=== PATIENT | female | born 1930 | race Caucasian/White ===

== ENCOUNTER → 2016-02-24 | Outpatient (CLI) | payer MEDICARE ==
--- NOTE | 2016-02-24 11:08 | RAD ---
EXAM DESCRIPTION: XR HIP 2 OR MORE VIEWSXR HIP 2 OR MORE VIEWS CLINICAL HISTORY: 85 y/o ,F, PAIN IN LEFT HIP COMPARISON: October 2015. IMPRESSION: Only on the frog-leg view is a possible avulsion injury of the posterior margin of the greater trochanter. The femoral neck is unremarkable. No joint space loss of the left hip. This can be confirmed on a CT if desired. Electronically signed by: Jamin Sesay MD 02/24/2016 11:06
--- NOTE | 2016-02-24 11:09 | RAD ---
EXAM DESCRIPTION: Pelvis series. CLINICAL HISTORY: Pelvic pain. COMPARISON: None. TECHNIQUE: One view was submitted for evaluation. FINDINGS: No fracture, dislocation, or radiopaque foreign body is seen. Pelvic ring appears intact. Soft tissues are unremarkable. IMPRESSION: No gross abnormality on today's single pelvic Rob Electronically signed by: Jamin Sesay MD 02/24/2016 11:07
== END ==
LOC: RAD 08:20
PROVIDERS: ATTEND Orthopaedic Surgery
DX: M25.552 Pain in left hip (principal)

== ENCOUNTER → 2016-03-22 | Outpatient (CLI) | payer MEDICARE ==
--- NOTE | 2016-03-22 15:48 | MAM ---
EXAM DESCRIPTION: MAMMO BREAST SCREENING BILATERAL CAD, images were reviewed with CAD technology, R2 computer-aided detection. CLINICAL HISTORY: Well Woman. Personal history of breast cancer status post left mastectomy COMPARISON: 2013. FINDINGS: Routine views are obtained. Scattered glandular pattern with the increased mammographic density period no dominant mass, architectural distortion or clustered microcalcification.. IMPRESSION: Benign exam. BIRAD CATEGORY: 2 BENIGN RECOMMENDATIONS: FOLLOW-UP: Routine screening mammogram in one year. According to the [employer], yearly mammograms are recommended starting at age 40 and continuing as long as a woman is in good health. Any breast change noted on a breast self-exam should be reported promptly to the patient's healthcare provider. Breast MRI is recommended for women with an approximately 20-25% or greater lifetime risk of breast cancer, including women with a strong family history of breast or ovarian cancer and women who have been treated for Hodgkin's disease. Electronically signed by: Tracy Pastor 03/22/2016 15:47
== END | disposition home or self-care (01) ==
LOC: MAMMO 10:19
PROVIDERS: ATTEND Family Medicine
DX: Z12.31 Encounter for screening mammogram for malignant neoplasm of breast (principal); M10.9 Gout, unspecified

== ENCOUNTER → 2016-03-30 | Outpatient (CLI) | payer MEDICARE ==
--- NOTE | 2016-03-31 08:17 | CT ---
EXAM DESCRIPTION: CT ABDOMEN PELVIS WITHOUT THEN WITH IV CONTRAST CLINICAL HISTORY: ABDOMINAL PAIN COMPARISON: October 26, 2015 TECHNIQUE: Pre and post contrast CT images of the abdomen and pelvis are obtained. CT scan done according to ALARA (As Low As Reasonably Achievable). FINDINGS: The visualized lung bases show mild emphysematous changes without acute findings. Left mastectomy and breast implant changes are noted. The liver, spleen, adrenal glands, and gallbladder are unremarkable. Mild atherosclerotic disease is seen. Somewhat linear calcification in the head to uncinate process of the pancreas is stable. No enlargement of the main pancreatic duct is seen. The less than 1 cm cyst in the body to tail of the pancreas is stable from previous. No nephrolithiasis or ureteral obstruction. 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 Stable less than 1 cm right greater than left renal cortical cysts. Urinary bladder is somewhat contracted and unremarkable. There is surgical absence of the uterus. The ovaries are not identified. The appendix is not seen. No secondary signs of acute appendicitis. Stomach is contracted and unremarkable. The colon is unremarkable. No significant diverticular disease. Osseous structures show no aggressive bony lesions. 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 IMPRESSION: No acute findings on CT of the abdomen and pelvis. Stable less than 1 cm cyst of the body to tail of the pancreas is noted unchanged from previous. Stable bilateral renal cortical cysts. Electronically signed by: Mike Mckeon MD 03/31/2016 08:16
== END | disposition home or self-care (01) ==
LOC: CT 08:26
PROVIDERS: ATTEND Family Medicine
DX: R10.9 Unspecified abdominal pain (principal)

== ENCOUNTER → 2016-06-06 | Outpatient (CLI) | payer MEDICARE ==
--- NOTE | 2016-06-07 08:11 | MRI ---
EXAM DESCRIPTION: Lumbar Spine w/o Contrast CLINICAL HISTORY: LUMBAR RADICULOPATHY. Low back pain with right hip and leg pain. COMPARISON: None Available. TECHNIQUE: MRI of the lumbar spine is performed according to our usual protocol with axial and sagittal multi sequence imaging. FINDINGS: The designated L5-S1 disc space is on axial T1 image 4. Transitional lumbosacral anatomy is present. For the purposes of this report, the L5 vertebral body is considered transitional and partially sacralized. There is a millimeter anterolisthesis of L4 on L5 secondary to severe facet hypertrophy. Vertebral body stature is maintained. There is no acute fracture or destructive osseous lesion. Modic type II endplate changes at L4-L5. Scattered benign hemangiomas. The conus medullaris terminates normally. T12-L1: Disc desiccation with mild disc narrowing. 2 mm posterior disc bulge with no spinal canal or neural foraminal stenosis. L1-2: Disc desiccation. Otherwise no significant findings. L2-3: Disc desiccation with mild disc narrowing. Mild facet hypertrophy. 2 mm posterior disc bulge with no spinal canal or neural foraminal stenosis. L3-4: Disc desiccation with mild disc narrowing. Moderate facet hypertrophy with ligamentum flavum thickening. 2 mm posterior disc bulge with no spinal canal or neural foraminal stenosis. L4-5: Severe disc desiccation and severe disc narrowing. There is remodeling of the inferior L4 endplate. Severe bilateral facet hypertrophy with ligamentum flavum thickening. Anterolisthesis with uncovering and posterior bulging of the disc up to 10 mm. Multifactorial severe spinal canal stenosis with residual AP diameter of the thecal sac measuring 6 mm. Severe left greater than right neural foraminal stenosis. Material abuts both exiting L4 nerve roots. L5-S1: Mild disc desiccation. Transitional anatomy. Mild facet hypertrophy. No spinal canal or neural foraminal stenosis. IMPRESSION: 1. Transitional lumbosacral anatomy as described above. For the purposes of this report, the designated L5 vertebral body is considered transitional and partially sacralized. The designated L5-S1 disc space is on axial T1 image 4. 2. Multilevel disc degeneration and facet degenerative changes. The findings are most pronounced at L4-L5 where there is anterolisthesis secondary to severe facet hypertrophy. There is severe spinal canal stenosis and severe left greater than right neural foraminal stenosis at this level. 3. Other levels as detailed above. Electronically signed by: Richard Lima MD 06/07/2016 8:10 AM CDT
== END | disposition home or self-care (01) ==
LOC: MRI 10:25
PROVIDERS: ATTEND Orthopaedic Surgery
DX: M54.16 Radiculopathy, lumbar region (principal)

== ENCOUNTER → 2016-07-10 | Outpatient (CLI) | payer MEDICARE | END | disposition home or self-care (01) | LOC: YCFC.O 10:36 | PROVIDERS: ATTEND Anesthesiology Pain Medicine | DX: Z79.891 Long term (current) use of opiate analgesic (principal) ==

== ENCOUNTER 2016-07-31 10:40 | Day surgery (SDC) | payer MEDICARE ==
[2016-07-31] MEDS ORDERED: SODIUM CHLORIDE 0.9% 10 ML VIAL ONE (12:29)
[2016-07-31] MEDS ORDERED: methylPREDNISolone ACETATE 80 MG/ML VIAL ONE (12:29)
[2016-07-31] MEDS: LIDOCAINE 1% MPF 5 ML VIAL ONE ×2 (13:09→13:12)
[2016-07-31 13:31] VITALS: BP 189/71; TEMP 97.7; O2SAT 97
== END 2016-07-31 13:30 | disposition home or self-care (01) ==
LOC: AMB 10:40
PROVIDERS: ATTEND Anesthesiology Pain Medicine
DX: M51.16 Intervertebral disc disorders with radiculopathy, lumbar region (principal); M46.96 Unspecified inflammatory spondylopathy, lumbar region; M70.60 Trochanteric bursitis, unspecified hip; Z88.0 Allergy status to penicillin; Z88.8 Allergy status to other drugs, medicaments and biological substances; Z79.82 Long term (current) use of aspirin; Z79.899 Other long term (current) drug therapy
CPT/HCPCS: 62323; J1030

== ENCOUNTER → 2016-08-09 | Outpatient (CLI) | payer MEDICARE | END | disposition home or self-care (01) | LOC: GMAL 10:04 | PROVIDERS: ATTEND Family Medicine | DX: E55.9 Vitamin D deficiency, unspecified (principal); M10.9 Gout, unspecified; D51.3 Other dietary vitamin B12 deficiency anemia ==

== ENCOUNTER → 2016-08-15 | Outpatient (CLI) | payer MEDICARE | LOC: GMAL 16:52 | PROVIDERS: ATTEND Family Medicine | DX: L65.9 Nonscarring hair loss, unspecified (principal); D53.9 Nutritional anemia, unspecified ==

== ENCOUNTER → 2017-03-20 | Outpatient (CLI) | payer MEDICARE | LOC: GMAL 11:30 | PROVIDERS: ATTEND Family Medicine | DX: D53.9 Nutritional anemia, unspecified (principal) ==

== ENCOUNTER → 2017-03-27 | Outpatient (CLI) | payer MEDICARE ==
--- NOTE | 2017-03-28 09:42 | MAM ---
EXAM DESCRIPTION: 3D Screening RIGHT : Digital Mammography. CLINICAL HISTORY: 86 years Female SCREENING . Right breast cancer with mastectomy March 2005. Remote family history of breast cancer. Postmenopausal. HRT 5 or more years ago. Right breast biopsy. COMPARISON: 2-D digital screening right breast study 03/22/2016 and 02/24/2015.. Report from prior examination also reviewed. TECHNIQUE: Right breast CC and MLO projection full-field images, 3-D tomosynthesis digital mammographic technique. Also right breast synthesized CC/ MLO full-field images. CAD not utilized. FINDINGS: Right breast parenchymal density pattern is: Heterogeneously dense breast tissue, which may obscure small masses. No skin thickening or nipple retraction biopsy site marker middle third central right breast. Stable minimal architectural distortion around the marker. Scattered microcalcifications. Stable retroareolar nodular density. No new focal, stellate mass or density, focal asymmetry , and no suspicious microcalcifications right breast. Stable mammograms compared to prior study, taking into account differences in mammographic technique IMPRESSION: BI-RADS CATEGORY: 2 - BENIGN FINDINGS. FOLLOW UP: Routine digital right breast screening, one year interval from March 2017. Written communication explaining the IMPRESSION and follow-up, will be mailed to the patient and referring health care provider. According to the [employer], yearly mammograms are recommended starting at age 40 and continuing as long as a woman is in good health. Any breast change noted on a breast self-exam should be reported promptly to the patient's healthcare provider. Breast MRI is recommended for women with an approximately 20-25% or greater lifetime risk of breast cancer, including women with a strong family history of breast or ovarian cancer and women who have been treated for Hodgkin's disease. A negative mammographic report should not delay tissue diagnosis in patients with significant clinical history or physical findings. Extremely dense breast tissue limits the sensitivity of digital mammography. Electronically signed by: Ovidio Pickens MD 03/28/2017 9:40 AM UTILITY TECH
== END ==
LOC: MAMMO 09:30
PROVIDERS: ATTEND Family Medicine
DX: Z12.31 Encounter for screening mammogram for malignant neoplasm of breast (principal)

== ENCOUNTER 2017-07-14 00:25 | Emergency (ER) | payer MEDICARE ==
[2017-07-14] MEDS ORDERED: MORPHINE SULFATE INJ 10 MG/ML VIAL IV ONE (00:39)
[2017-07-14] MEDS ORDERED: ONDANSETRON INJ 4 MG/2 ML VIAL IV ONE (00:39)
[2017-07-14] MEDS ORDERED: CYCLOBENZAPRINE HCL 10 MG TAB PO ONE (00:40)
--- NOTE | 2017-07-14 00:43 | ED.PDOC ---
History of Present Illness - General Chief Complaint: Back Pain or Injury Stated Complaint: back spasms Time Seen by Provider: 07/14/17 00:38 Source: patient Exam Limitations: no limitations - History of Present Illness Timing/Duration: 4-6 hours Quality/Severity: moderate Back Pain Location: other - right flank Improving Factors: nothing Worsening Factors: nothing Associated Symptoms: muscle spasms Allergies/Adverse Reactions: Allergies Codeine Allergy (Verified 01/28/14 15:05) Hydromorphone [From Dilaudid] Allergy (Verified 01/28/14 15:05) Naproxen [From Naprosyn] Allergy (Verified 01/28/14 15:05) Penicillins Allergy (Verified 01/28/14 15:05) Home Medications: Ambulatory Orders Aspirin 01/28/14 Calcium 01/28/14 Digoxin 01/28/14 Furosemide 01/28/14 Klor-Con 01/28/14 Lisinopril 01/28/14 Metoprolol Tartrate 01/28/14 Ondansetron Odt [Zofran ODT] 8 mg PO Q6HR PRN #20 tab 01/28/14 Uloric 01/28/14 Vitamin B-12 01/28/14 Cyclobenzaprine HCl [Flexeril] 10 mg PO TID PRN #20 tab 07/14/17 Review of Systems - Review of Systems Constitutional: States: no symptoms reported EENTM: States: no symptoms reported Respiratory: States: no symptoms reported Cardiology: States: no symptoms reported Gastrointestinal/Abdominal: States: no symptoms reported Genitourinary: States: no symptoms reported Musculoskeletal: States: back pain Skin: States: no symptoms reported Neurological: States: no symptoms reported Endocrine: States: no symptoms reported Past Medical History (General) - Patient Medical History Hx Cardiac Disorders: Yes - Atrial Fib Hx Congestive Heart Failure: No Hx Hypertension: Yes Hx Diabetes: No Hx Cancer: Yes - Breast CA,Lung CA Hx MRSA: No - Vaccination History Hx Influenza Vaccination: Yes Hx Pneumococcal Vaccination: Yes - 2-3 years agp - Social History Hx Tobacco Use: Yes Family Medical History - Family History Mother Family History: Unknown Living Status: Father Hx Cardiac Disease: Yes - aortic aneurysm Physical Exam - Physical Exam General Appearance: Alert Eyes, Ears, Nose, Throat Exam: PERRL/EOMI, normal ENT inspection Neck Exam: non-tender, full range of motion, normal alignment Cardiovascular/Respiratory: regular rate, rhythm, no M/R/G Peripheral Pulses: radial,right: 2+, dorsalis pedis,right: 2+, dorsalis pedis, left: 2+ Gastrointestinal/Abdominal: non tender, soft Back Exam: CVA tenderness (R) Extremity Exam: no evidence of injury, normal range of motion, non-tender, no pedal edema 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 as tested, no motor/sensory deficits, alert, normal mood/affect, oriented x 3 Skin Exam: normal color, warm/dry Progress - Progress Progress: 07/14/17 02:03 Laboratory Results WBC 7.6 K/mm3 (4.8-10.8) 07/14/17 00:39 RBC 4.70 M/mm3 (4.20-5.40) 07/14/17 00:39 Hgb 13.9 gm/dL (12.0-16.0) 07/14/17 00:39 Hct 41.4 % (36.0-47.0) 07/14/17 00:39 MCV 88.0 fl (81.0-99.0) 07/14/17 00:39 MCH 29.5 pg (27.0-31.0) 07/14/17 00:39 MCHC 33.6 g/dL (33.0-37.0) 07/14/17 00:39 RDW 13.5 % (11.5-14.5) 07/14/17 00:39 Plt Count 150 K/mm3 (130-400) 07/14/17 00:39 MPV 9.3 fl (7.40-10.4) 07/14/17 00:39 Absolute Neuts (auto) 4.90 K/uL (1.8-6.8) 07/14/17 00:39 Absolute Lymphs (auto) 1.70 K/uL (1.0-3.4) 07/14/17 00:39 Absolute Monos (auto) 0.60 K/uL (0.2-0.8) 07/14/17 00:39 Absolute Eos (auto) 0.50 K/uL (0.0-0.4) H 07/14/17 00:39 Absolute Basos (auto) 0.10 K/uL (0.0-0.1) 18 00:39 Neutrophils % 63.5 % (42.0-78.0) 07/14/17 00:39 Lymphocytes % 22.4 % (20.0-50.0) 07/14/17 00:39 Monocytes % 7.3 % (2.0-9.0) 07/14/17 00:39 Eosinophils % 6.0 % (1.0-5.0) H 07/14/17 00:39 Basophils % 0.8 % (0.0-2.0) 07/14/17 00:39 Sodium 136 mmol/L (135-145) 07/14/17 00:39 Potassium 4.0 mmol/L (3.6-5.0) 07/14/17 00:39 Chloride 102 mmol/L (101-111) 07/14/17 00:39 Carbon Dioxide 25 mmol/L (21-31) 07/14/17 00:39 Anion Gap 13.0 (12-18) 07/14/17 00:39 BUN 23 mg/dL (7-18) H 07/14/17 00:39 Creatinine 0.93 mg/dL (0.6-1.3) 07/14/17 00:39 BUN/Creatinine Ratio 24.7 (10-20) H 07/14/17 00:39 Random Glucose 103 mg/dL (70-105) 07/14/17 00:39 Serum Osmolality 275.9 mOsm/L (275-295) 07/14/17 00:39 Calcium 9.3 mg/dL (8.4-10.2) 07/14/17 00:39 Total Bilirubin 0.5 mg/dL (0.2-1.0) 07/14/17 00:39 AST 21 IU/L (10-42) 07/14/17 00:39 ALT 16 IU/L (10-60) 07/14/17 00:39 Alkaline Phosphatase 43 IU/L (42-121) 07/14/17 00:39 Serum Total Protein 7.3 gm/dL (6.4-8.2) 18 00:39 Albumin 4.0 g/dl (3.2-5.5) 07/14/17 00:39 Globulin 3.3 gm/dL (2.3-3.5) 07/14/17 00:39 Albumin/Globulin Ratio 1.2 (1.1-1.9) 07/14/17 00:39 Lipase 19 U/L (22-51) L 07/14/17 00:40 Urine Color Yellow (Yellow) 07/14/17 01:33 Urine Appearance Clear (Clear) 07/14/17 01:33 Urine pH 5.5 (4.5-7.8) 07/14/17 01:33 Ur Specific [place] 1.020 (1.005-1.030) 07/14/17 01:33 Urine Protein Negative mg/dL 07/14/17 01:33 Urine Glucose (UA) Negative mg/dL (Negative) 07/14/17 01:33 Urine Ketones Negative mg/dL (NEGATIVE) 07/14/17 01:33 Urine Blood Negative (Negative) 07/14/17 01:33 Urine Nitrite Negative 07/14/17 01:33 Urine Bilirubin Negative (NEGATIVE) 07/14/17 01:33 Urine Urobilinogen 0.2 mg/dL (0.2-1.0) 07/14/17 01:33 Ur Leukocyte Esterase Negative (Negative) 07/14/17 01:33 Urine RBC 1-3 /hpf 07/14/17 01:33 Urine WBC 0-1 /hpf 07/14/17 01:33 Ur Epithelial Cells 1-3 /hpf 07/14/17 01:33 Urine Bacteria 0 07/14/17 01:33 pt feeling much improved, no longer having symptoms, discussed lab results and the need for close f/u, will returns if acute change or worsening, will increase h2o intake and will add muscle relaxant for short term therapy. Departure - Departure Clinical Impression: Muscle spasm, Flank pain Time of Disposition: 02:05 Disposition: Discharge to Home or Self Care Condition: Excellent Departure Forms: ED Discharge - Pt. Copy, Patient Portal Self Enrollment Instructions: DI for Back Spasm Diet: resume usual diet Activity: increase activity as tolerated Referrals: Alo Jerez III, MD [Primary Care Provider] - 1-2 Weeks Prescriptions: Cyclobenzaprine HCl [Flexeril] 10 mg PO TID PRN #20 tab PRN Reason: Pain Home Medications: Ambulatory Orders Aspirin 01/28/14 Calcium 01/28/14 Digoxin 01/28/14 Furosemide 01/28/14 Klor-Con 01/28/14 Lisinopril 01/28/14 Metoprolol Tartrate 01/28/14 Ondansetron Odt [Zofran ODT] 8 mg PO Q6HR PRN #20 tab 01/28/14 Uloric 01/28/14 Vitamin B-12 01/28/14 Cyclobenzaprine HCl [Flexeril] 10 mg PO TID PRN #20 tab 07/14/17
[2017-07-14 01:20] VITALS: O2SAT 96
[2017-07-14 02:14] VITALS: BP 144/52; TEMP 96.8
== END 2017-07-14 02:52 | disposition home or self-care (01) ==
LOC: ER 00:25
DX: M62.830 Muscle spasm of back (principal); R10.9 Unspecified abdominal pain; I48.91 Unspecified atrial fibrillation; I10 Essential (primary) hypertension; Z85.3 Personal history of malignant neoplasm of breast; Z85.118 Personal history of other malignant neoplasm of bronchus and lung; Z87.891 Personal history of nicotine dependence
CPT/HCPCS: 36415; 80053; 81001; 83690; 85025; J2270; J2405

== ENCOUNTER → 2017-08-14 | Outpatient (CLI) | payer MEDICARE | LOC: GMAL 15:04 | PROVIDERS: ATTEND Family Medicine | DX: D51.3 Other dietary vitamin B12 deficiency anemia (principal); D53.9 Nutritional anemia, unspecified; E55.9 Vitamin D deficiency, unspecified; R53.82 Chronic fatigue, unspecified ==

== ENCOUNTER → 2017-11-27 | Outpatient (CLI) | payer MEDICARE | LOC: GMAL 14:56 | PROVIDERS: ATTEND Family Medicine | DX: D53.9 Nutritional anemia, unspecified (principal); M10.9 Gout, unspecified; I10 Essential (primary) hypertension ==

== ENCOUNTER → 2018-04-02 | Outpatient (CLI) | payer MEDICARE ==
--- NOTE | 2018-04-04 20:28 | MAM ---
EXAM DESCRIPTION: 3D Screening BILATERAL : Digital Mammography. CLINICAL HISTORY: 87 years Female ANNUAL SCREENING . Left breast cancer with mastectomy 2005. Remote family history of breast cancer.. Lifetime risk of developing breast cancer (Tyrer-Cuzick model)(%): Calculated due to personal history of breast cancer. COMPARISON: 3-D screening bilateral digital breast tomosynthesis 03/27/2017.. No prior reports available. TECHNIQUE: Right CC and MLO projection full-field images, digital tomosynthesis mammographic technique. Left digital 2-D full-field MLO images. CAD not available for tomosynthesis or 2-D images. FINDINGS: Right breast parenchymal density pattern is: Heterogeneously dense breast tissue, which may obscure small masses. No skin thickening or nipple retraction. Biopsy site marker midline superior right breast adjacent to an area of architectural distortion. Similar appearance on the prior study. Intramammary nodes are stable since the prior study. Small solitary microcalcifications. No new focal, stellate mass or density, focal asymmetry , and no suspicious microcalcifications right breast Stable mammograms compared to prior study. IMPRESSION: Benign exam. BIRAD CATEGORY: 2 BENIGN FINDINGS. RECOMMENDATIONS: FOLLOW UP: Routine digital right mammographic screening, one year interval from March 2018. Written communication explaining the IMPRESSION and follow-up, will be mailed to the patient and referring health care provider. According to the [employer], yearly mammograms are recommended starting at age 40 and continuing as long as a woman is in good health. Any breast change noted on a breast self-exam should be reported promptly to the patient's healthcare provider. Breast MRI is recommended for women with an approximately 20-25% or greater lifetime risk of breast cancer, including women with a strong family history of breast or ovarian cancer and women who have been treated for Hodgkin's disease. A negative mammographic report should not delay tissue diagnosis in patients with significant clinical history or physical findings. Extremely dense breast tissue limits the sensitivity of digital mammography. Electronically signed by: Ovidio Pickens MD 04/04/2018 8:25 PM WASH DRILLER
== END ==
LOC: MAMMO 10:16
PROVIDERS: ATTEND Family Medicine
DX: Z12.31 Encounter for screening mammogram for malignant neoplasm of breast (principal)

== ENCOUNTER → 2018-05-03 | Outpatient (CLI) | payer MEDICARE ==
--- NOTE | 2018-05-05 12:44 | RAD ---
EXAM: Ankle,Right 3 Views CLINICAL HISTORY: M79.604. TECHNIQUE: AP, lateral and oblique images. COMPARISON STUDY: None FINDINGS: Bone structures and joint spaces appear normal. No fracture or dislocation identified. Diffuse soft tissue swelling is suspected. IMPRESSION: 1. Soft tissue swelling without an identifiable fracture. Electronically signed by: Faustino Day MD 05/05/2018 12:41 PM CDT
--- NOTE | 2018-05-05 12:45 | RAD ---
EXAM: Hip,Right 2 Views CLINICAL HISTORY: M79.604. TECHNIQUE: AP, lateral images. COMPARISON STUDY: AP pelvis April 18, 2011 FINDINGS: Bone structures and joint spaces appear normal. No fracture or dislocation identified. Ovoid densities in the pelvis appear to be undissolved medications. IMPRESSION: NEGATIVE EXAM. Electronically signed by: Faustino Day MD 05/05/2018 12:42 PM CDT
--- NOTE | 2018-05-05 12:46 | RAD ---
EXAM: Knee,Right Complete CLINICAL HISTORY: M79.604 COMPARISON STUDY: None. TECHNICAL: 4 views of the knee. FINDINGS: Views of the knee demonstrate no fracture or dislocation. There is no acute bone abnormality. There is no visible effusion. IMPRESSION: NEGATIVE RIGHT KNEE. Electronically signed by: Faustino Day MD 05/05/2018 12:43 PM CDT
== END ==
LOC: RAD 09:30
PROVIDERS: ATTEND Orthopaedic Surgery
DX: M79.604 Pain in right leg (principal); M79.9 Soft tissue disorder, unspecified